=== PATIENT | female | born 1960 | race Caucasian/White ===

== ENCOUNTER 2021-08-10 14:25 | Emergency (ER) | payer BC ==
[2021-08-10 14:43] VITALS: BP 112/72; PULSE 69; TEMP 98.6; BMI 19.3
[2021-08-10 16:00] LABS: BILIRUBIN,TOTAL 0.6 mg/dl (0.2-1); CALCIUM 9.4 mg/dl (8.5-10); CREATININE 0.6 mg/dl (0.55-1.3); TOT PROT 6.2 g/dl (6.4-8.2)
== END 2021-08-10 16:33 | disposition home or self-care (01) ==
LOC: FER 14:25
DX: R07.9 Chest pain, unspecified (principal)
CPT/HCPCS: 36415; 71045-TC-FY; 80053; 84484; 93005; 99284-25

== ENCOUNTER 2021-12-13 09:25 | Emergency (ER) | payer OTHER, BC ==
[2021-12-13 09:46] VITALS: BP 117/82; PULSE 72; TEMP 98.7; BMI 19.1
== END 2021-12-13 11:15 | disposition home or self-care (01) ==
LOC: SUPCPDRO 09:25 → FER 09:25
DX: S20.211A Contusion of right front wall of thorax, initial encounter (principal); W01.0XXA Fall on same level from slipping, tripping and stumbling without subsequent striking against object, initial encounter; Y93.41 Activity, dancing
CPT/HCPCS: 71101-TC-RT-FY; 99283-25